=== PATIENT | male | born 1970 | race Caucasian/White ===

== ENCOUNTER 2018-08-07 12:20 | Inpatient (IN) | payer BC ==
[~2018-08-07] VITALS: Ht 188 cm; Wt 125.4 kg
[2018-08-07 12:24] VITALS: Ht 188 cm; Wt 125.4 kg
[2018-08-07 12:48] LABS: PLATELET COUNT 306 x10^3mcL (130-400); RED CELL DISTRIBUTION WIDTH 13.5 % (11.5-14.5)
[2018-08-07 12:54] LABS: CALCIUM 8.7 mg/dL (8.5-10.1); CARBON DIOXIDE 15.2 mmol/L (21-32); CHLORIDE SERUM 103 mmol/L (98-107); CREATININE SERUM 1.4 mg/dL (0.7-1.3); GFR1 58 mL/min; GLUCOSE SERUM 167 mg/dL (74-106); POTASSIUM SERUM 3.6 mmol/L (3.5-5.1); SODIUM SERUM 141 mmol/L (136-145)
[2018-08-07 13:00] LABS: ALBUMIN 4.3 g/dL (3.4-5.0); ALKALINE PHOSPHATASE 71 U/L (46-116); ALT/SGPT 35 U/L (16-63); AST/SGOT 22 U/L (15-37); BILIRUBIN TOTAL 0.3 mg/dL (0.20-1.00)
[2018-08-07 13:02] LABS: AMPHETAMINE QUAL UR NONE DETECTED (See below)
[2018-08-07 13:08] LABS: TOTAL PROTEIN, SERUM 8.9 g/dL (6.4-8.2)
[2018-08-07 13:41] LABS: BAND NEUTROPHIL 12 % (0-10); MONOCYTE 6 % (0-7); SEGMENTED NEUTROPHILS 70 % (37-75)
[2018-08-07 13:42] LABS: PLATELET MORPHOLOGY PLATELETS NORMAL; rbc morphology (normal/abnorm) NORMAL (NORMAL)
[2018-08-07] MEDS ORDERED: LEXAPRO5 M1 PO (14:43)
[2018-08-07] MEDS ORDERED: LAMICTAL CD5 MG PO (14:43)
[2018-08-07] MEDS ORDERED: VIMPAT150 MG PO (14:44)
[2018-08-07] MEDS ORDERED: ATIVAN0.5 M1 (14:44)
[2018-08-07 15:19] LABS: T3 TOTAL 1.22 ng/mL
[2018-08-07 15:22] VITALS: BP 135/75
[2018-08-07 15:23] LABS: FREE T4 0.66 ng/dL (0.76-1.46)
[2018-08-07 15:24] LABS: FREE THYROXINE INDEX 1.1 ug/dL (1.4-4.5)
[2018-08-07 15:53] LABS: MAGNESIUM 1.9 mg/dL (1.8-2.4); PHOSPHOROUS 3.9 mg/dL (2.5-4.9)
[2018-08-07 15:54] LABS: CHOLESTEROL/HDL RATIO 5.1
[2018-08-07 20:00] VITALS: BP 100/56
[2018-08-07 23:02] LABS: UA SPECIFIC GRAVITY >=1.030 (1.005-1.035); microscopic required? YES; urine erythrocyte 2+ (NEGATIVE)
[2018-08-08 05:43] VITALS: BP 144/85
[2018-08-08 06:29] LABS: BASOPHIL % 0.3 % (0-2); PLATELET COUNT 222 x10^3mcL (130-400); RED CELL DISTRIBUTION WIDTH 13.7 % (11.5-14.5)
[2018-08-08 06:54] LABS: CALCIUM 8.2 mg/dL (8.5-10.1); CHLORIDE SERUM 107 mmol/L (98-107); CREATININE SERUM 0.8 mg/dL (0.7-1.3); GFR1 > 60 mL/min; GLUCOSE SERUM 108 mg/dL (74-106); POTASSIUM SERUM 3.4 mmol/L (3.5-5.1); SODIUM SERUM 141 mmol/L (136-145)
[2018-08-08 07:30] LABS: PHOSPHOROUS 2.5 mg/dL (2.5-4.9)
[2018-08-08 08:49] VITALS: BP 115/59
[2018-08-08 12:33] VITALS: BP 129/77
[2018-08-08 14:05] VITALS: BP 115/59
== END 2018-08-08 14:46 | disposition home or self-care (01) | DRG 100 ==
LOC: ED 12:20 → DU 13:49
PROVIDERS: Emergency Medicine; Internal Medicine
DX: G40.901 Epilepsy, unspecified, not intractable, with status epilepticus (principal); N17.0 Acute kidney failure with tubular necrosis; E87.2 Acidosis; D72.829 Elevated white blood cell count, unspecified
CPT/HCPCS: 82962; 83880; 84439; G0480; J0696; J1885; J1953; J2405; J3490; J7030; J7040; Q0092